=== PATIENT | female | born 1980 | race Caucasian/White ===

== ENCOUNTER 2022-05-28 08:24 | Day surgery (SDC) | payer SELFPAY ==
[~2022-05-28] VITALS: Ht 175.3 cm; Wt 122.5 kg
[2022-05-28] VITALS (11 sets, daily range): BP systolic 100–135; BP diastolic 59–88
[~2022-05-28 08:24] MED LIST: CALC-656 PO; CODE-54 PO; IBP600T1 PO; Ibuprofen PO; PREN-102 PO; PREN1TAB39 PO
--- NOTE | 2022-05-28 08:53 | ED Abdominal Pain ---
General Chief Complaint: Abdominal/GI Problems Stated Complaint: RT LOWER ABD PAIN Nursing Triage Note: PT AMB TO RM 6 WITH COMPLAINT OF RLQ PAIN. [facility] S[facility] TO ER FOR FURTHER EVALUATION. STATES PAIN STARTED LAST NIGHT AT 11PM. PAIN IS WORSE ON MOVEMENT. STATES SHE HAS BEEN CONSTIPATED RECENTLY. Source of Information: Patient Exam Limitations: No Limitations History of Present Illness Date Seen by Provider: May 28, 2022 Time Seen by Provider: 08:40 Initial Comments Patient is a 42-year-old female who presents to the emergency department today with a chief complaint of periumbilical and right lower quadrant abdominal pain. Onset of pain last night around 11 PM. She describes it as sharp and unremitting. She could not find a comfortable position last night to sleep but was able to get some sleep. Did not take any medications for the pain. When she got up this morning and noted that the pain was still present she took her kids to school and went to a local urgent care. She was advised at the urgent care that she possibly had appendicitis and presents to the emergency department for further evaluation. Denies fevers or chills. She did feel "cold" last nigh t. She is just now starting to get a little nauseous. Her n.p.o. status is last evening. Prior surgery on her abdomen and bilateral tubal ligation 8 years ago. Last normal menstrual cycle 1 week ago. She states movement, bending, stretching flat make her symptoms worse. Currently rates her pain at 2. At its worst it climbs that she is moving around. Timing/Duration: Other (12 hours) Severity/Quality: Mild, Sharp Location: RLQ Activities at Onset: None Associated Symptoms: Denies Symptoms Allergies and Home Medications Allergies Coded Allergies: NKANo Known Allergies (Verified Allergy, Unknown, 06/02/06) Patient Home Medication List Home Medication List Reviewed: Yes Acetaminophen/Codeine (Tylenol W/Codeine #3 Tablet) 1 Tab Tablet, 1-2 TAB PO Q4H PRN for MODERATE TO SEVERE PAIN Prescribed by: KATARZYNA STEPHENS on 01/27/14 0829 Vits #93/Iron Fum/Fa ( Formula Tablet) 1 Each Tablet, 1 EACH PO DAILY, (Reported) Entered as Reported by: MERCY BELLO on 05/30/13 2536 [Ibuprofen] 600 MG TAB, 600 MG PO Q6H PRN for PAIN Prescribed by: KATARZYNA STEPHENS on 01/27/14 0847 Review of Systems Review of Systems Constitutional: see HPI EENTM: No Symptoms Reported Respiratory: No Symptoms Reported Cardiovascular: No Symptoms Reported Gastrointestinal: Abdominal Pain, Nausea (mild) Genitourinary: No Symptoms Reported Musculoskeletal: no symptoms reported Skin: no symptoms reported Psychiatric/Neurological: No Symptoms Reported All Other Systems Reviewed Negative Unless Noted: Yes Past Fbtugdx-Ddvmbj-Yvybne Hx Patient Social History Tobacco Use?: No Use of E-Cig and/or Vaping dev: No Substance use?: No Alcohol Use?: No Pt feels they are or have been: No Immunizations Up To Date Tetanus Booster (TDap): Less than 5yrs PED Vaccines UTD: Yes Past Medical History Reproductive Disorders: Yes Female Reproductive Disorders: Polycystic Ovarian Dis Sexually Transmitted Disease: Yes (HPV, Herpes) HIV/AIDS: No Loss of Vision: Denies Hearing Impairment: Denies Herpes Adverse Reaction/Blood Tranf: No Family Medical History Abdominal aortic aneurysm MATERNAL AUNT (60) Arthritis 19 MOTHER MATERNAL AUNT Asthma 19 MOTHER Cardiovascular disease MATERNAL AUNT Cataracts MATERNAL GDMOTHER MATERNAL AUNT Completed stroke MATERNAL GDMOTHER MATERNAL AUNT Dementia MATERNAL GDMOTHER MATERNAL AUNT Diabetes mellitus 19 MOTHER (TYPE 2 (IDDM)) MATERNAL GDMOTHER (TYPE 2 (IDDM)) MATERNAL AUNT (TYPE 2 (IDDM)) Headache disorder 19 MOTHER (MIGRAINES) MATERNAL AUNT (MIGRAINES) Hypercholesterolemia G8 BROTHER Hypertension 19 MOTHER G8 BROTHER MATERNAL AUNT Myocardial infarction MATERNAL AUNT Neoplasm MATERNAL GDMOTHER (BREAST AND SKIN) Thyroid disease MATERNAL GDMOTHER No Family History of: AIDS Cedar's disease Alcoholism Alzheimer's disease Aphasia Cancer of mouth Colon cancer Congenital disease Congenital heart disease Coronary thrombosis Cystic fibrosis Deafness or hearing loss Drug abuse Dysphasia Fibrocystic disease of breast Gastroenteritis Glaucoma Infertility Kidney disease Not obtainable due to adoption Osteoporosis Parkinson's disease Prostate cancer Psychosocial problem Respiratory disorder Seizure disorder Severe allergy Tuberculosis Visual disorder Physical Exam Vital Signs Vital Signs - First Documented 05/28/22 08:34 Temp 36.5 Pulse 79 Resp 16 B/P (MAP) 121/90 (100) Pulse Ox 98 O2 Delivery Room Air Capillary Refill : Less Than 3 Seconds Height/Weight/BMI Height: 5'9.00" Weight: 259lbs. 0.6oz. 117.725616xh; 39.00 BMI Method:Stated General Appearance: WD/WN, no apparent distress HEENT: PERRL/EOMI Neck: full range of motion Respiratory: lungs clear, normal breath sounds, no respiratory distress, no accessory muscle use Cardiovascular: regular rate, rhythm Gastrointestinal: soft, abnormal bowel sounds (slightly), tenderness (noe umbilical tenderness and RLQ), other (equivolcal rovsing's, psoas) Extremities: normal range of motion, non-tender, normal inspection Neurologic/Psychiatric: no motor/sensory deficits, alert, normal mood/affect, oriented x 3 Skin: normal color, warm/dry Progress/Results/Core Measures Results/Orders Lab Results Laboratory Tests Test 05/28/22 09:30 05/28/22 10:08 Range/Units White Blood Count 10.0 4.3-11.0 10^3/uL Red Blood Count 4.37 3.80-5.11 10^6/uL Hemoglobin 12.8 11.5-16.0 g/dL Hematocrit 39 35-52 % Mean Corpuscular Volume 90 80-99 fL Mean Corpuscular Hemoglobin 29 25-34 pg Mean Corpuscular Hemoglobin Concent 33 32-36 g/dL Red Cell Distribution Width 12.4 10.0-14.5 % Platelet Count 307 130-400 10^3/uL Mean Platelet Volume 10.3 9.0-12.2 fL Immature Granulocyte % (Auto) 0 % Neutrophils (%) (Auto) 80 H 42-75 % Lymphocytes (%) (Auto) 14 12-44 % Monocytes (%) (Auto) 5 0-12 % Eosinophils (%) (Auto) 1 0-10 % Basophils (%) (Auto) 0 0-10 % Neutrophils # (Auto) 8.1 H 1.8-7.8 10^3/uL Lymphocytes # (Auto) 1.4 1.0-4.0 10^3/uL Monocytes # (Auto) 0.5 0.0-1.0 10^3/uL Eosinophils # (Auto) 0.1 0.0-0.3 10^3/uL Basophils # (Auto) 0.0 0.0-0.1 10^3/uL Immature Granulocyte # (Auto) 0.0 0.0-0.1 10^3/uL Sodium Level 137 135-145 MMOL/L Potassium Level 4.1 3.6-5.0 MMOL/L Chloride Level 104 98-107 MMOL/L Carbon Dioxide Level 28 21-32 MMOL/L Anion Gap 5 5-14 MMOL/L Blood Urea Nitrogen 14 7-18 MG/DL Creatinine 0.80 0.60-1.30 MG/DL Estimat Glomerular Filtration Rate 95 BUN/Creatinine Ratio 18 Glucose Level 81 70-105 MG/DL Calcium Level 8.9 8.5-10.1 MG/DL Urine Color ORANGE Urine Clarity CLOUDY Urine pH 5.5 5-9 Urine Specific [place] >=1.030 1.016-1.022 Urine Protein NEGATIVE NEGATIVE Urine Glucose (UA) NEGATIVE NEGATIVE Urine Ketones NEGATIVE NEGATIVE Urine Nitrite NEGATIVE NEGATIVE Urine Bilirubin NEGATIVE NEGATIVE Urine Urobilinogen 0.2 < = 1.0 MG/DL Urine Leukocyte Esterase TRACE H NEGATIVE Urine RBC (Auto) 1+ H NEGATIVE Urine RBC 0-2 /HPF Urine WBC 0-2 /HPF Urine Squamous Epithelial Cells 2-5 /HPF Urine Crystals NONE /LPF Urine Bacteria MODERATE H /HPF Urine Casts NONE /LPF Urine Mucus NEGATIVE /LPF Urine Culture Indicated YES My Orders Orders - JEANNE MARIA MD Ed Iv/Invasive Line Start (05/28/22 08:46) Cbc With Automated Diff (05/28/22 08:46) Basic Metabolic Panel (05/28/22 08:46) Ua Culture If Indicated (05/28/22 08:46) Urine Bedside (05/28/22 08:46) Ns Iv 1000 Ml (Sodium Chloride 0.9%) (05/28/22 09:00) Urine Culture (05/28/22 10:08) Ct Abd/Pelv W (Appendicitis) (05/28/22 10:42) Iohexol Injection (Omnipaque 350 Mg/Ml 1 (05/28/22 10:45) Received Contrast (Hold Metformin- Contr (05/28/22 10:45) Ns (Ivpb) (Sodium Chloride 0.9% Ivpb Bag (05/28/22 10:45) Sodium Chloride Flush (Catheter Flush Sy (05/28/22 11:00) Medications Given in ED Current Medications Medications Dose Ordered Sig/Marcelino Route Start Time Stop Time Status Last Admin Dose Admin Iohexol 100 ml ONCE ONCE IV 05/28/22 10:45 05/28/22 10:46 DC 05/28/22 10:55 100 ML Sodium Chloride 10 ml NEEDED PRN IV 05/28/22 11:00 05/28/22 10:55 10 ML Sodium Chloride 100 ml ONCE ONCE IV 05/28/22 10:45 05/28/22 10:46 DC 05/28/22 10:55 80 ML Vital Signs/I&O 05/28/22 08:34 Temp 36.5 Pulse 79 Resp 16 B/P (MAP) 121/90 (100) Pulse Ox 98 O2 Delivery Room Air Blood Pressure Mean: 100 Progress Progress Note : Time: 11:17 Progress Note Patient reassessed, continues to be resting comfortably. States her pain is tolerable still at a "2". Vital signs are stable. Labs reviewed, within normal limits. Patient is not . CT shows acute uncomplicated appendicitis. I have discussed the results with the patient, she is n.p.o. since yesterday evening. Will discuss with Dr. BARRAZA who is on-call for general surgery Diagnostic Imaging Diagonstic Imaging: CT Comments [facility]. [place], [place] NAME: BERTHA SAMUELS [facility] REC#: [id number] PT STATUS: REG ER : 1980 PHYSICIAN: JEANNE MARIA MD ADMIT DATE: 05/28/22/ER Signed Date of Exam:05/28/22 CT ABD/PELV W (APPENDICITIS) EXAMINATION: CT abdomen and pelvis with intravenous contrast. TECHNIQUE: Multiple contiguous axial images were obtained through the abdomen and pelvis after the uneventful administration of intravenous contrast. All CT scans use one or more of the following dose optimizing techniques: automated exposure control, MA and/or KvP adjustment based on patient size and exam type or iterative reconstruction. HISTORY: Right lower quadrant pain. COMPARISON: None available. FINDINGS: The heart is unremarkable. The included lung bases are clear. An area of decreased attenuation is seen in the right hepatic lobe near the gallbladder fossa measuring 3.8 x 2.2 cm. This demonstrates nodular peripheral enhancement. No other focal hepatic lesions are seen. The gallbladder is unremarkable. The portal vein is patent. The spleen, pancreas, adrenal glands, and kidneys have a normal appearance. There is no pathologically enlarged mesenteric or retroperitoneal adenopathy. The appendix is visualized in the right lower quadrant which is dilated measuring 1.2 cm. There is appendicular wall thickening with periappendicular fat stranding. The bowel loops are nondilated. There is no free fluid or free air. No acute osseous abnormalities. Ureters and bladder are grossly normal. There is no free air, loculated collection, or adenopathy in the pelvis. IMPRESSION: 1. Acute uncomplicated appendicitis. 2. Likely hemangioma within the right hepatic lobe near the gallbladder fossa. Nonemergent liver protocol CT could be performed to confirm diagnosis. Dictated by: Dictated on workstation # [id number] Dict: 05/28/22 1102 Trans: 05/28/22 1113 [id number] Interpreted by: MICHEAL MCLAIN DO Electronically signed by: MICHEAL MCLAIN DO 05/28/22 1113 Departure Communication (Admissions) Time/Spoke to Consulting Phy: 11:[address] Barraza. Target 2pm for surgery Impression Primary Impression: Appendicitis Qualified Codes: K35.30 - Acute appendicitis with localized peritonitis, without perforation or gangrene Disposition: ADMITTED INPATIENT Condition: Stable Admissions Decision to Admit Reason: Admit from ER (General) Decision to Admit/Date: May 28, 2022 Time/Decision to Admit Time: 11:19 Departure-Patient Inst. Referrals: SHARON PERALTA APRN (PCP/Family) Primary Care Physician JEANNE MARIA MD May 28, 2022 08:53
[2022-05-28] MEDS ORDERED: NS IV 1000 ML 1,000 ML IV SCH (09:00)
[2022-05-28 09:44] LABS: BASOPHILS % (AUTO) 0 % (0-10); EOSINOPHILS # (AUTO) 0.1 10^3/uL (0.0-0.3); EOSINOPHILS % (AUTO) 1 % (0-10); HEMATOCRIT 39 % (35-52); HEMOGLOBIN 12.8 g/dL (11.5-16.0); LYMPHOCYTES # (AUTO) 1.4 10^3/uL (1.0-4.0); LYMPHOCYTES % (AUTO) 14 % (12-44); MEAN CORPUSCULAR HEMOGLOBIN 29 pg (25-34); MEAN CORPUSCULAR HGB CONC 33 g/dL (32-36); MEAN CORPUSCULAR VOLUME 90 fL (80-99); MEAN PLATELET VOLUME 10.3 fL (9.0-12.2); MONOCYTES # (AUTO) 0.5 10^3/uL (0.0-1.0); MONOCYTES % (AUTO) 5 % (0-12); NEUTROPHILS # (AUTO) 8.1 10^3/uL (1.8-7.8); NEUTROPHILS % (AUTO) 80 % (42-75); PLATELET COUNT 307 10^3/uL (130-400)
[2022-05-28 09:59] LABS: POTASSIUM 4.1 MMOL/L (3.6-5.0)
[2022-05-28 10:00] LABS: CALCIUM 8.9 MG/DL (8.5-10.1)
[2022-05-28 10:05] LABS: CREATININE SERUM 0.8 MG/DL (0.60-1.30)
[2022-05-28 10:20] LABS: BILIRUBIN,URINE NEGATIVE (NEGATIVE); CLARITY,URINE CLOUDY; COLOR,URINE ORANGE; GLUCOSE, URINE (UA) NEGATIVE (NEGATIVE); KETONES,URINE NEGATIVE (NEGATIVE); LEUKOCYTE ESTERASE ,URINE TRACE (NEGATIVE); NITRITE,URINE NEGATIVE (NEGATIVE); PH,URINE 5.5 (5-9); PROTEIN,URINE NEGATIVE (NEGATIVE)
[2022-05-28 10:33] LABS: BACTERIA,URINE MODERATE /HPF; RBC,URINE 0-2 /HPF; WBC,URINE 0-2 /HPF
[2022-05-28] MEDS ORDERED: HOLD METFORMIN - RECEIVED CONTRAST 20 ML VIAL IV SCH ×2 (10:45→11:00)
[2022-05-28] MEDS ORDERED: IOHEXOL 350 MG/ML 100 ML (OMNIPAQUE 350) VIAL IV ONE ×2 (10:45→11:00)
[2022-05-28] MEDS ORDERED: NS 100 ML (IVPB) BAG IV ONE ×2 (10:45→11:00)
[2022-05-28] MEDS ORDERED: CATHETER FLUSH 10 ML SYR IV PRN (11:00)
--- NOTE | 2022-05-28 11:09 | Diagnostic Imaging Report ---
EXAMINATION: CT abdomen and pelvis with intravenous contrast. TECHNIQUE: Multiple contiguous axial images were obtained through the abdomen and pelvis after the uneventful administration of intravenous contrast. All CT scans use one or more of the following dose optimizing techniques: automated exposure control, MA and/or KvP adjustment based on patient size and exam type or iterative reconstruction. HISTORY: Right lower quadrant pain. COMPARISON: None available. FINDINGS: The heart is unremarkable. The included lung bases are clear. An area of decreased attenuation is seen in the right hepatic lobe near the gallbladder fossa measuring 3.8 x 2.2 cm. This demonstrates nodular peripheral enhancement. No other focal hepatic lesions are seen. The gallbladder is unremarkable. The portal vein is patent. The spleen, pancreas, adrenal glands, and kidneys have a normal appearance. There is no pathologically enlarged mesenteric or retroperitoneal adenopathy. The appendix is visualized in the right lower quadrant which is dilated measuring 1.2 cm. There is appendicular wall thickening with periappendicular fat stranding. The bowel loops are nondilated. There is no free fluid or free air. No acute osseous abnormalities. Ureters and bladder are grossly normal. There is no free air, loculated collection, or adenopathy in the pelvis. IMPRESSION: 1. Acute uncomplicated appendicitis. 2. Likely hemangioma within the right hepatic lobe near the gallbladder fossa. Nonemergent liver protocol CT could be performed to confirm diagnosis. Dictated by: Dictated on workstation # [id number]
[2022-05-28] MEDS ORDERED: fentaNYL INJ 100 MCG/2 ML AMP ONE ×2 (12:05→13:34)
[2022-05-28] MEDS: LACTATED RINGERS 1,000 ML IV PRN ×2 (12:11→13:34)
[2022-05-28] MEDS ORDERED: fentaNYL INJ 100 MCG/2 ML AMP IVP ONE ×2 (12:15→16:00)
[2022-05-28] MEDS ORDERED: metroNIDAZOLE 500MG/100ML IVPB 100 ML IV ONE (12:15)
[2022-05-28] MEDS ORDERED: ceFAZolin INJECTION 1,000 MG in NS (IVPB) 50 ML IV ONE (12:15)
[2022-05-28] MEDS ORDERED: HYDR-3817 PO (12:55)
--- NOTE | 2022-05-28 12:55 | Discharge Inst-Surgical ---
D/C Lap Instructions-ROBERT New, Converted, or Re-Newed RX: RX on Chart Follow Up Appt in 2 weeks Activity as tolerated No driving for 24 hours No driving while on pain medications Incentive Spirometry use every 2 hours while awake Regular Diet Symptoms to Report: Fever over 101 degree F, Nausea/Vomiting Infection Signs and Symptoms to report: Increased redness, Foul odor of wound, Increased drainage Bathing instructions: May shower Operative Area Clean/Dry; Keep incision clean/dry If any problems/questions: Contact your physician or go to Emergency Room EVIN JONES MD May 28, 2022 12:55
[2022-05-28] MEDS ORDERED: ONDANSETRON 4 MG/2 ML (SDV) Z0FRAN IVP PRN ×2 (13:00→16:00)
[2022-05-28] MEDS ORDERED: morphine INJ 10 MG/ML 1ML (SYR OR VIAL) IVP PRN ×2 (13:00)
[2022-05-28] MEDS ORDERED: ACETAMINOPHEN 325 MG TABLET PO PRN (13:00)
[2022-05-28] MEDS ORDERED: oxyCODONE/APAP 5/325MG (PERCOCET 5) TABLET PO PRN (13:00)
[2022-05-28] MEDS ORDERED: LIDOCAINE PF 2% 5 ML (XYLOCAINE) VIAL ONE (13:34)
[2022-05-28] MEDS ORDERED: ROCURONIUM 10 MG/ML 5 ML SYRINGE IV ONE (13:34)
[2022-05-28] MEDS ORDERED: SEVOFLURANE (ULTANE) 15 ML INHAL SOLN ONE ×2 (13:34→15:32)
[2022-05-28] MEDS ORDERED: MIDAZOLAM 2 MG/2 ML (VERSED) VIAL ONE (13:34)
[2022-05-28] MEDS ORDERED: ONDANSETRON 4 MG/2 ML (SDV) Z0FRAN ONE (13:34)
[2022-05-28] MEDS ORDERED: proPOfol 200 MG/20 ML (DIPRIVAN) VIAL IV ONE (13:34)
[2022-05-28] MEDS ORDERED: BUP/EPI 0.25% 1:200,000 (MARCAINE) 30 ML VIAL ONE (13:37)
--- NOTE | 2022-05-28 13:45 | HISTORY AND PHYSICAL ---
ATTENDING/PRIMARY OCCUPANCY SPECIALIST: Tigist Diaz APRN HISTORY OF PRESENT ILLNESS: The patient is a 42-year-old female who presented to the emergency department with onset of pain that started last night in the right lower abdominal quadrant. She states that she could not get comfortable all night and did not sleep. This morning, she states that her pain seemed to be worse and upon ambulation, this also exacerbated it. She did not report any episodes of nausea nor vomiting as well as no diarrhea nor constipation. She did present to the Emergency Department where a CT scan was performed, which did show inflammation of the appendix consistent with an appendicitis. PAST MEDICAL HISTORY: Polycystic ovarian disease, HPV, herpes. PAST SURGERIES: Bilateral tubal ligation. ALLERGIES: NO KNOWN DRUG ALLERGIES. MEDICATIONS: Tylenol with Codeine p.r.n. SOCIAL HISTORY: Negative smoking, negative alcohol. FAMILY HISTORY: Mother; diabetes, asthma, hypertension. VITAL SIGNS: Temperature 36.5, blood pressure 121/90, pulse 79, respirations 16, pulse ox 98% on room air. REVIEW OF SYSTEMS: She is a well-nourished female, currently in no acute distress. She is not experiencing any shortness of breath or difficulty breathing. No chest pain, palpitations, diaphoresis. No nausea or vomiting. No diarrhea or constipation, but pain in the right lower abdominal quadrant. No fever or chills. No recent inadvertent weight loss. All other review of systems negative. PHYSICAL EXAMINATION: CHEST: Clear. Good breath sounds bilaterally. HEART: Regular, no murmurs. EXTREMITIES: No lower extremity edema. Negative Homans sign. HEENT: No scleral icterus. No cervical lymphadenopathy. ABDOMEN: Soft, nondistended. There is pain in the right lower abdominal quadrant with voluntary guarding, no rebound. SKIN: Warm and dry. ASSESSMENT AND PLAN: A 42-year-old female with acute appendicitis. The natural history of this disease process was explained to the patient as well as the risks and benefits of surgery and she is in full understanding of this and would like to proceed with a laparoscopic appendectomy, which we will schedule. Job ID: [id number] DocumentID: [id number] Dictated Date: 05/28/2022 12:54:49 City Council Member Date: 05/28/2022 13:43:00 Dictated By: EVIN JONES MD
--- NOTE | 2022-05-28 15:39 | Progress Note-Post Operative ---
Post-Operative Progess Note Surgeon (s)/Certified Dialysis Technician (s) Surgeon EVIN JONES MD Certified Dialysis Technician: none Pre-Operative Diagnosis APPENDICITIS Post-Operative Diagnosis same Procedure & Operative Findings Date of Procedure 05/28/22 Procedure Performed/Findings laparoscopic cholecystectomy Anesthesia Type get Estimated Blood Loss Estimated blood loss (mL): minimal Specimens/Packing Specimens Removed appendix EVIN JONES MD May 28, 2022 15:39
--- NOTE | 2022-05-28 15:46 | Anesthesia-General Post-Op ---
General Patient Condition Mental Status/LOC: Same as Preop Cardiovascular: Satisfactory Nausea/Vomiting: Absent Respiratory: Satisfactory Pain: Controlled Complications: Absent Post Op Complications Complications None Follow Up Care/Instructions Patient Instructions None needed. Anesthesia/Patient Condition Patient Condition Patient is doing well, no complaints, stable vital signs, no apparent adverse anesthesia problems. No complications reported per nursing. LAURA ELIAS CRNA May 28, 2022 15:46
[2022-05-28] MEDS ORDERED: BUP/EPI 0.25% 1:200,000 (MARCAINE) 30 ML VIAL INJ ONE (15:47)
[2022-05-28] MEDS ORDERED: morphine INJ 10 MG/ML 1ML (SYR OR VIAL) IVP ONE (16:00)
[2022-05-28] MEDS ORDERED: MEPERIDINE (DEMEROL) INJ 50 MG/ML IVP ONE (16:00)
[2022-05-28] MEDS ORDERED: morphine INJ 10 MG/ML 1ML (SYR OR VIAL) ONE (16:01)
[2022-05-28] MEDS ORDERED: oxyCODONE/APAP 5/325MG (PERCOCET 5) TABLET ONE (16:56)
--- NOTE | 2022-05-29 03:06 | OPERATIVE REPORT ---
DATE OF SERVICE: 05/28/2022 ATTENDING POLISHER DIAL: Tigist Diaz APRN PREOPERATIVE DIAGNOSIS: Acute appendicitis. POSTOPERATIVE DIAGNOSIS: 1. Acute appendicitis, no perforation. 2. Right ovarian cyst. PROCEDURE: Laparoscopic appendectomy. SURGEON: Mick Barraza MD ANESTHESIA: General endotracheal. ESTIMATED BLOOD LOSS: Minimal. FINDINGS: 1. Acute appendicitis, no perforation. 2. Right ovarian cyst. DISPOSITION: The patient tolerated the procedure well. INDICATIONS: The patient is a 42-year-old female who presented to the emergency department with onset of pain that started last night in the right lower abdominal quadrant. She states that she could not get comfortable all night and did not sleep much. This morning, she states that the pain seemed to be worse and upon ambulation this also exacerbated the pain. She did not report any episodes of nausea, no vomiting; however, was not hungry. She also did not report any episodes of diarrhea. No constipation. She presented to the emergency department where a CT scan was performed, which did show inflammation of the appendix consistent with an acute appendicitis. DESCRIPTION OF PROCEDURE: The patient was brought to the operating room, laid supine on the table. After adequate IV pain and sedative medications and general endotracheal intubation, the abdomen was prepped and draped in standard surgical fashion. Then, 0.5% Marcaine with epinephrine was used to anesthetize the overlying skin in the left upper abdominal quadrant and a transverse skin incision made using a #15 blade. An 0 silk suture was applied to the medial aspect of the incision for retraction. A Veress needle inserted with a low opening pressure of 0 mmHg and the abdomen was then insufflated to 15 mmHg pressure. The Veress needle removed and a 5 mm Xcel trocar placed followed by a 5 mm 45-degree angle laparoscope visualizing the peritoneal cavity. A 4-quadrant abdominal exploration was performed. There was a right ovarian cyst, which appeared to be physiologic. There was inflammation of the appendix, no perforation. The remainder of the omentum, small bowel, colon, liver appeared normal. Under direct visualization, we then proceeded to place a supraumbilical 10 mm port after the skin and peritoneal lining were anesthetized using 0.5% Marcaine with epinephrine and a transverse skin incision made using a #15 blade. In a similar manner, a suprapubic 5 mm port was placed. The patient was then placed in steep reverse Trendelenburg position as well as well as right side up, left side down. The appendix was then retracted towards the anterior abdominal wall and a window created between the mesoappendix and the base of the appendix at the cecum using a [place] dissector. The appendix was then stapled and transected at the cecal base using a ERIC 45 mm stapler with a 2.5 mm thickness load. The mesoappendix was then stapled and transected with the same stapler with a 2.0 mm thickness reload with visualization of good hemostasis. The appendix was removed through the 10 mm port site using an EndoCatch bag. The 10 mm port site fascia and peritoneum were then closed under direct visualization using a Ron-Kalee device with an 0 Vicryl suture. The abdomen was desufflated and the remaining ports were removed. All skin incisions were closed using 4-0 Monocryl running subcuticular sutures. Wounds were then cleaned and covered with Dermabond. The patient tolerated the procedure well. POSTOPERATIVE PLAN: We will start IV and oral pain medication as well as a clear liquid diet and once she was tolerating clears with good pain control and was ambulating well, we will discharge her home where she will be instructed to do no heavy lifting or exertion for the next 2 weeks. Job ID: [id number] DocumentID: [id number] Dictated Date: 05/28/2022 15:45:10 Submarine Worker Date: 05/29/2022 03:03:00 Dictated By: MD RAUL COX
== END 2022-05-28 18:15 | disposition home or self-care (01) ==
LOC: EDUNIT# 08:24 → ER 08:28 → SDC 11:33
PROVIDERS: ATTEND Surgery
DX: K35.80 Unspecified acute appendicitis (principal); N83.201 Unspecified ovarian cyst, right side
CPT/HCPCS: 36415; 74177; 80048; 81000; 84703; 85025; 87081; 87088